=== PATIENT | male | born 2000 | race Caucasian/White ===

== ENCOUNTER 2024-08-09 12:55 | Outpatient (OUT) | payer OTHER, SELFPAY ==
--- NOTE | 2024-08-09 13:36 | RT_ITS ---
The [facility] Test Date: 2024-08-09 Pat Name: NASIMA SARABIA Department: Room: - Gender: Male Display Screen Fabricator: Ruben Candelaria RRT : 2000 Requested By: [id number] Order Number: [id number] Reading MD: Almas Skinner Interpretive Statements Spirometry was completed according to ATS criteria. Findings were considered accurate and reproducible. Both pre- and post-bronchodilator values utilized for spirometry. No prior studies available for comparison. Spirometry (based on pre-bronchodilator values): -FEV1/FVC: Normal @ 77% -FEV1: Normal @ 99% -FVC: Normal @ 105% -NCN80-19%: Normal at 88% -There is no significant bronchodilator response. Flow-volume loop: -Normal shape Impressions: -Technically normal spirometry. Depending on clinical scenario, may consider full PFT (lung volumes and diffusion capacity) or methacholine challenge. Clinical correlation required. Electronically Signed On 08-13-2024 10:03:36 EST by Almas Skinner
[2024-08-09] MEDS: ALBUTEROL SULFATE 2.5 MG/3 ML VIAL NEB IH (13:37)
--- NOTE | 2024-08-09 14:04 | XR_ITS ---
[address] [address] Patient Name: NASIMA SARABIA MRN: [id number] date: 2000 Sex: M Assigned Patient Location: CARD Current Patient Location: CARD Accession/Order Number: [id number] Exam Date: 08/09/2024 14:05 Report Date: 08/09/2024 15:00 At the request of: ABHIJEET MARINO Procedure: XR chest 2V EXAMINATION: XR chest 2V HISTORY: Pneumonia COMPARISON: No relevant comparison available. TECHNIQUE: PA and lateral FINDINGS: LUNGS: No significant pulmonary parenchymal abnormalities. VASCULATURE: No increased pulmonary vasculature. PLEURA: No pneumothorax, effusion, or pleural thickening. CARDIAC: No cardiomegaly or cardiac silhouette abnormality. MEDIASTINUM: No visible mass or adenopathy. BONES: No fracture or visible bone lesion. Dextrocurvature OTHER: Negative. XR/XR chest 2V IMPRESSION: No acute cardiopulmonary process. Electronically authenticated by: BREANNE PURI Date: 08/09/2024 15:00
== END 2024-08-09 12:56 | disposition home or self-care (01) ==
PROVIDERS: PCP Family Medicine; Visit Provider Chiropractor
DX: J18.9 Pneumonia, unspecified organism (principal)
CPT/HCPCS: 71046; 94060

== ENCOUNTER 2024-09-10 17:57 | Emergency (ER) | payer OTHER, SELFPAY ==
[2024-09-10 18:03] VITALS: BP 145/76; PULSE 64; TEMP 37.1; O2SAT 100; BMI 32.8
--- OUTSIDE RECORDS SUMMARY | 2024-09-10 18:03 | XMS_ITS | CCD ---
Author Organization [facility] Care Team Providers Care Electrical Electronics Engineer Name Role Phone DR CHAITANYA BRADFORD Consulting Unavailable DR CHAITANYA BRADFORD Attending Unavailable DR CHAITANYA BRADFORD Admitting Unavailable DR CHAITANYA BRADFORD Primary Care Unavailable Unavailable Primary Care Provider BARB Talbert Referring Unavailable ANA MARÍA STEIN Attending Unavailable ANA MARÍA STEIN Referring Unavailable Problems Active Problems Problem Classification Problem Date Documented Da te Episodic/Chronic Administrative/social admission (2 sources) Encounter for pre-employment examination; Translations: [Encounter for pre-employment examination] Onset: 08-04-2022 Episodic Other upper respiratory infections (1 source) Acute pharyngitis, unspecified; Translations: [ACUTE PHARYNGITIS UNSPECIFIED] Onset: 03-11-2022 Episodic Unclassified (3 sources) CONTACT W/AND (SUSP) EXPOS COVID-19; Translations: [CONTACT W/AND (SUSP) EXPOS COVID-19] Onset: 03-11-2022 Past or Other Problems Problem Classification Problem Date Documented Da te Episodic/Chronic Unclassified (1 source) CONTACT W/AND (SUSP) EXPOS COVID-19; Translations: [CONTACT W/AND (SUSP) EXPOS COVID-19] Onset: 03-08-2022 Results Test Name Value Interpretation Reference Range Facil ity US GALLBLADDERon 05-14-2024 US GALLBLADDER EXAM: Limited Abdome n Ultrasound: REAON FOR EXAM: Nausea and vomiting. Reference Exam: No comparison. TECHNIQUE: Real-time ultrasonographic evaluation of the abdomen performed with color flow Doppler and Doppler spectral analysis. FINDINGS: Liver: The liver shows normal size and echogenicity. There is normal hepatopetal blood flow in the portal vein by Doppler spectral analysis. Biliary tract: The gallbladder shows no evidence of stones or wall thickening and no evidence of pericholecystic fluid. The common bile duct diameter is normal and there is no evidence of intrahepatic or extrahepatic biliary dilatation. Pancreas: What is seen of the pancreas is remarkable for increased echotexture of the pancreas, possibly related to fatty infiltration. Right kidney: Renal parenchymal echotexture normal. Negative for hydronephrosis, retroperitoneal mass, fluid collection or stone. Peritoneal cavity: Negative for ascites. Measurements: CBD: 0.41 cm GB wall: 0.26 cm Pancreas: Echogenic Right kidney: 10.2 cm Liver: 16.7 cm IMPRESSION: 1. Echogenic pancreatic parenchyma can be related to fatty infiltration of the pancreas. 2. No biliary tract pathology identified. 3. No acute intra-abdominal pathology is identified. *This report is generated using voice recognition reporting (Telepath). On occasion Rest[employer] erroneously drops words from the report or replaces the spoken word with similar sounding words. Please call with any questions/concerns regarding this report.* Dictated and transcribed 05/14/24/dpd This report has been electronically signed and approved by the interpreting radiologist. Electronically Signed Eldon Lopez M.D. 2024-05-14 16:55:40 Normal Not Available Measles (Rubeola) Imon 08-05 Measles (Rubeola) Im 1.07 Low >1.09 [facility] Comment on above: Result Comment: Reference Range: <0.91 Not Immune 0.91 - 1.10 Equivocal >1.10 Immune Performed By: #### R UBI, JULES, VZI, SHWETHA #### [facility] [address].[facility] [address] [place] [address] Pipe Insulator: Dwayne Sloan MD Mumps,Immun,Abon 08-05-2022 Mumps,Immun,Ab 0.70 Low >1.09 [facility] Comment on above: Result Comment: Interpretation: Not Immune Reference Range: <0.91 Not Immune 0.91-1.09 Equivocal >1.09 Immune Performed By: #### R UBI, JULES, VZI, SHWETHA #### [facility] [address].[facility] [address] [place] [address] [id number] Pipe Insulator: Dwayne Sloan MD Rubella Ab, IgGon 08-05-2022 Rubella Ab, IgG 260.4 IU/mL Normal [facility] Comment on above: Result Comment: REFERENCE RANGE: <5.0 NON-REACTIVE (non-immune) 5.0 TO 9.9 EQUIVOCAL >=10.0 REACTIVE (immune) Performed By: #### R UBI, JULES, VZI, SHWETHA #### [facility] [address] [place] [address] Pipe Insulator: Dwayne Sloan MD Rubella antibody, IgGon 07-09 Rubella virus IgG Ql (S) 260.4 IU/mL [facility] Comment on above: REFERENCE RANGE: <5.0 NON-REACTIVE (non-immune) 5.0 TO 9.9 EQUIVOCAL >=10.0 REACTIVE (immune) [facility] VZ Immunityon 08-05-2022 VZ Immunity 0.64 Low >1.09 [facility] Comment on above: Result Comment: Interpretation: Not Immune Reference Range: <0.91 Not Immune 0.91-1.09 Equivocal >1.09 Immune Performed By: #### R UBI, JULES, VZI, SHWETHA #### [facility] [address] [place], [place] [id number] Pipe Insulator: Dwayne Sloan MD [facility]on SARS-CoV-2 (COVID-19) RNA ISAIAS+probe Ql (Unsp spec) Not detected Normal NOT DETECTED [facility] Comment on above: Result Comment: This test is not yet approved or cleared by the [place] FDA. When there are no FDA-approved or cleared tests available, and other criteria are met, FDA can make tests available under an emergency access mechanism called an Emergency Use Authorization (EUA). The EUA for this test is supported by the [employer] Supervisor of Health and Human Service's (HHS's) declaration that circumstances exist to justify the emergency use of in vitro diagnostics for the detection and/or diagnosis of the virus that causes COVID-19. This EUA will remain in effect (meaning this test can be used) for the duration of the COVID-19 declaration justifying emergency of IVDs, unless it is terminated or revoked by FDA (after which the test may no longer be used). When diagnostic testing is negative, the possibility of a false negative should be considered in the context of a patient's recent exposures and the presence of clinical signs and symptoms consistent with SARS-CoV-2. Performed By: #### C TB #### [facility] [address] [address] [address] 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 - [facility] Work Phone: Plan of Treatment Date Care Activity Detail Author Start: 03-07-2022 Influenza vaccination Flu vaccine (# 1) [facility] Start: 2017 DTaP/Tdap/Td vaccine (1 - Tdap) DTaP/Tdap/Td vaccine (1 - Tdap) [facility] Start: 04-22-1999 COVID-19 Vaccine (#1) COVID-19 Vacci ne (#1) [employer] End: 08-04-2022 Mumps Antibody, IgG [facility] Work Phone: Comment on above: Once for 1 Occurrenc es starting 08/04/2022 until 08/04/2022 End: 08-04-2022 Rubeola Antibody, IgG [facility] Work Phone: Comment on above: Once for 1 Occurrenc es starting 08/04/2022 until 08/04/2022 End: 08-04-2022 Varicella Zoster Antibody, IgG [facility] Work Phone: Comment on above: Once for 1 Occurrenc es starting 08/04/2022 until 08/04/2022 Payers Date Payer Category Payer Private Health Insurance [id number] 2022 Unknown [id number] 2000 Unknown [id number] 2000 Unknown [id number] 1998 Unknown [id number] [id number] 1998 Unknown [id number] 1959 Unknown [id number] Social History Date Type Detail Facility Tobacco smoking stat [facility] Tobacco smoking consumption unknown [facility] [employer] Phone: Start: 2000 Sex Assigned At Not on file [facility] [employer] Phone: Summary Purpose Family History No Family History Records FoundNo Family History Records FoundNo Family History Records Found Advance Directives No Advanced Directives Records FoundNo Advanced Directives Records FoundNo Advanced Directives Records Found Additional Source Comments (unrecognized sect ion and content) No Status Records FoundNo Status Records FoundNo Status Records Found INFORMATION SOURCE (unrecogn ized section and content) DATE CREATED AUTHOR 03/12/2022 [facility] DATE CREATED AUTHOR AUTHOR'S ORGANIZ ATION 08/05/2022 [facility] DATE CREATED AUTHOR AUTHOR'S ORGANIZ ATION 05/20/2024 [facility] EPIC FOR RECORDS PERTAINING TO PATIENTS WHO ARE OR HAVE BEEN ENROLLED IN A CHEMICAL DEPENDENCY/SUBSTANCEABUSE PROGRAM, SOME INFORMATION MAY BE OMITTED. This clinical summary was aggregated from multiple sources. Caution should be exercised in using it in the provision of clinical care. This summary normalizes information from multiple sources, and as a consequence, information in this document may materially change the coding, format and clinical context of patient data. In addition, data may be omitted in some cases. CLINICAL DECISIONS SHOULD BE BASED ON THE PRIMARY CLINICAL RECORDS. [facility]. provides no warranty or guarantee of the accuracy or completeness of information in this document.
--- NOTE | 2024-09-10 18:09 | XR_ITS ---
The [address] [address] Patient Name: NASIMA SARABIA MRN: [id number] date: 2000 Sex: M Assigned Patient Location: ER Current Patient Location: ED.MAIN Accession/Order Number: [id number] Exam Date: 09/10/2024 18:15 Report Date: 09/10/2024 18:49 At the request of: VINCENT FOSTER Procedure: XR foot RT min 3V Exam: Radiographs: XR foot RT min 3V Reason for exam: twisted Comparison: None XR/XR foot RT min 3V IMPRESSION: Acute mildly angulated distal right fifth metatarsal fracture. Remainder of the right foot radiographs is unremarkable. Electronically authenticated by: TREVON WASHINGTON Date: 09/10/2024 18:49
--- NOTE | 2024-09-10 18:09 | ED.LOWEXI1 ---
HPI HPI - Extremity Injury (Lower) General Chief Complaint: Extremity Injury, Lower Stated Complaint: fall Time Seen by Provider: 09/10/24 18:04 Source: patient Mode of arrival: walk-in Limitations: no limitations History of Present Illness HPI Narrative: 23-year-old male presents to the emergency department for pain in his right foot. This morning he twisted it when he went down a single step. He points to the distal lateral dorsum of his foot to indicate area of pain. No pain in the ankle. It hurts more to walk on it. Related Data Previous Rx's ?Medication ?Instructions ?Recorded acetaminophen 300 mg-codeine 30 mg 1 tab PO Q6H PRN pain 5 days #20 09/10/24 tablet tabs Allergies Allergy/AdvReac Type Severity Reaction Status Date / Time No Known Drug Allergies Allergy Verified 09/10/24 18:02 Opioid HPI Opioid Management Most Recent Pain and Opioid Data: Last Pain Scale 6 09/10/24 18:09 09/10/24 Review of Systems ROS Narrative A ten point review of systems is negative except as noted above. PFSH PFSH Social History Little interest or pleasure in doing things: not at all Feeling down, depressed, or hopeless: not at all Exam Narrative Exam Narrative: Nurses note and vital signs reviewed and patient is not hypoxic. General: The patient appears well and in no apparent distress. Patient is resting comfortably on cart. Skin: Warm, dry, no pallor noted. There is no rash noted. Head: Normocephalic, atraumatic Eye: Normal conjunctiva, no drainage Ears, Nose, Mouth, and Throat: oral mucosa is moist. Nares patent. Cardiovascular: Regular Rate and Rhythm Respiratory: Patient is in no distress, no accessory muscle use Back: non-tender GI: Normal bowel sounds, no tenderness to palpation, no masses appreciated. No rebound, guarding, or rigidity noted. Musculoskeletal: The right ankle is nontender. The right foot is examined. There is some bruising and swelling of the distal dorsal lateral aspect of his foot. Skin intact. Neurological: A&O, normal speech Psychiatric: Cooperative Constitutional Vital Signs, click to edit/add: Last Vital Signs Temp 98.7 F 09/10/24 18:03 Pulse 64 09/10/24 18:03 Resp 18 09/10/24 18:03 BP 145/76 H 09/10/24 18:03 Pulse Ox 100 09/10/24 18:03 O2 Del Method Room Air 09/10/24 18:03 Course Vital Signs Vital signs: Vital Signs Temperature 98.7 F 09/10/24 18:03 Pulse Rate 64 09/10/24 18:03 Respiratory Rate 18 09/10/24 18:03 Blood Pressure 145/76 H 09/10/24 18:03 Pulse Oximetry 100 09/10/24 18:03 Oxygen Delivery Method Room Air 09/10/24 18:03 Temperature 98.7 F 09/10/24 18:03 Pulse Rate 64 09/10/24 18:03 Respiratory Rate 18 09/10/24 18:03 Blood Pressure 145/76 H 09/10/24 18:03 Pulse Oximetry 100 09/10/24 18:03 Oxygen Delivery Method Room Air 09/10/24 18:03 MDM - Extremity Injury (Lower) MDM Narrative Medical decision making narrative: Right fifth metatarsal fractures identified. Short leg splint applied by me and he is neurovascularly intact. He is also placed on crutches and referred to Dr. Levi. The importance of follow-up was discussed thoroughly. Treatment diagnosis and follow-up were discussed with the patient and his . Differential Diagnosis Differential diagnosis: Likely other (Foot fracture, foot sprain) Imaging Data Right foot x-ray: My impression: Right fifth metatarsal fracture Discharge Plan Discharge Chief Complaint: Extremity Injury, Lower Clinical Impression: Fracture of fifth metatarsal bone of right foot Patient Disposition: Home, Self-Care Time of Disposition Decision: 18:39 Condition: Good Mode of Transportation: Private Vehicle Prescriptions / Home Meds: New acetaminophen-codeine 300-30 mg tablet 1 tab PO Q6H PRN (Reason: pain) 5 Days Qty: 20 0RF Print Language: Bulgarian Instructions: Foot Fracture in Adults (ED) Referrals: Sony Bustillos MD [Primary Care Provider] - 1 week Chris Levi DPM [Physician] - As soon as possible
--- NOTE | 2024-09-10 18:43 | PC.NURSE ---
crutch training given, pt demonstrates good use
== END 2024-09-10 18:55 | disposition home or self-care (01) ==
PROVIDERS: Emergency Provider Emergency Medicine; PCP Family Medicine
DX: S92.351A Displaced fracture of fifth metatarsal bone, right foot, initial encounter for closed fracture (principal); X50.1XXA Overexertion from prolonged static or awkward postures, initial encounter
CPT/HCPCS: 29515; 73630; 99283

== ENCOUNTER 2024-10-03 14:59 | Outpatient (OUT) | payer OTHER, SELFPAY ==
--- NOTE | 2024-10-03 | XR_ITS ---
The [address] [address] Patient Name: NASIMA SARABIA MRN: [id number] date: 2000 Sex: M Assigned Patient Location: Current Patient Location: Accession/Order Number: [id number] Exam Date: 10/03/2024 15:33 Report Date: 10/03/2024 15:34 At the request of: MODESTA SILVA Procedure: XR foot RT min 3V XR foot RT min 3V 10/03/2024 3:07 PM SIGNS AND SYMPTOMS: ^RIGHT FOOT PAIN PROTOCOL: Frontal, lateral, and oblique radiographs of the right foot COMPARISON: 09/10/2024 FINDINGS: There is redemonstration of an obliquely oriented fracture of the distal shaft of the fifth metatarsal without change in alignment or significant interval healing. There is accompanying mild soft tissue swelling laterally. No additional fractures. The joint spaces are preserved. XR/XR foot RT min 3V IMPRESSION: There is redemonstration of an obliquely oriented fracture of the distal shaft of the fifth metatarsal without change in alignment or significant interval healing. Impression dictated by: Eldon Muir M.D.10/03/2024 3:34 PM Dictation Location: [address] [place] [address] Electronically authenticated by: [id number] Y Date: 10/03/2024 15:34
--- OUTSIDE RECORDS SUMMARY | 2024-10-03 15:23 | XMS_ITS | CCD ---
Author Organization [facility] Care Team Providers Care Sexual Assault Counsellor Name Role Phone DR CHAITANYA BRADFORD Consulting [...] report is generated using voice recognition reporting ([employer]). On occasion [employer] erroneously drops words from the report or replaces the spoken word with similar sounding words. Please call with any questions/concerns regarding this report.* Dictated and transcribed 05/14/24/dpd This report has been electronically signed and approved by the interpreting radiologist. Electronically Signed Eldon Lopez M.D. 2024-05-14 16:55:40 Normal Not Available Measles (Rubeola) Imon 08-05 Measles (Rubeola) Im 1.07 Low >1.09 [facility] Comment on above: Result Comment: Reference Range: <0.91 Not Immune 0.91 - 1.10 Equivocal >1.10 Immune Performed By: #### R UBI, JULES, VZI, SHWETHA #### [facility] [employer] [address] [place] [address] Spring Coverer: Dwayne Sloan MD Mumps,Immun,Abon 08-05-2022 Mumps,Immun,Ab 0.70 Low >1.09 [facility] Comment on above: Result Comment: Interpretation: Not Immune Reference Range: <0.91 Not Immune 0.91-1.09 Equivocal >1.09 Immune Performed By: #### R UBI, JULES, VZI, SHWETHA #### [facility] [employer] [address] [place] [address] [id number] Spring Coverer: Dwayne Sloan MD Rubella Ab, IgGon 08-05-2022 Rubella Ab, IgG 260.4 IU/mL Normal [facility] Comment on above: Result Comment: REFERENCE RANGE: <5.0 NON-REACTIVE (non-immune) 5.0 TO 9.9 EQUIVOCAL >=10.0 REACTIVE (immune) Performed By: #### R UBI, JULES, VZI, SHWETHA #### [employer] [address] [place] [address] Spring Coverer: Dwayne Sloan MD Rubella antibody, IgGon 07-09 Rubella virus IgG Ql (S) 260.4 IU/mL [facility] Comment on above: REFERENCE RANGE: <5.0 NON-REACTIVE (non-immune) 5.0 TO 9.9 EQUIVOCAL >=10.0 REACTIVE (immune) [facility] VZ Immunityon 08-05-2022 VZ Immunity 0.64 Low >1.09 [facility] Comment on above: Result Comment: Interpretation: Not Immune Reference Range: <0.91 Not Immune 0.91-1.09 Equivocal >1.09 Immune Performed By: #### R UBI, JULES, VZI, SHWETHA #### [employer] [address] [place], [place] [id number] Spring Coverer: Dwayne Sloan MD [facility]-19 PCR [facility]on SARS-CoV-2 (COVID-19) RNA ISAIAS+probe Ql (Unsp spec) Not detected Normal NOT DETECTED [facility] Comment on above: Result Comment: This test is not yet approved or cleared by the [place] FDA. When there are no FDA-approved or cleared tests available, and other criteria are met, FDA can make tests available under an emergency access mechanism called an Emergency Use Authorization (EUA). The EUA for this test is supported by the Legal Instruments Examiner of Health and Human Service's (HHS's) declaration [...] SARS-CoV-2. Performed By: #### C TB #### [facility] [address] [address] [address] 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 - [facility] Work Phone: Plan of Treatment Date Care Activity Detail Author Start: 03-07-2022 Influenza vaccination Flu vaccine (# 1) [employer] Start: 2017 DTaP/Tdap/Td vaccine (1 - Tdap) DTaP/Tdap/Td vaccine (1 - Tdap) [employer] Start: 04-22-1999 COVID-19 Vaccine (#1) COVID-19 Vacci ne (#1) [facility] End: 08-04-2022 Mumps Antibody, IgG [facility] Work Phone: Comment on above: Once for 1 Occurrenc es starting 08/04/2022 until 08/04/2022 End: 08-04-2022 Rubeola Antibody, IgG [employer] Work Phone: Comment on above: Once for 1 Occurrenc es starting 08/04/2022 until 08/04/2022 End: 08-04-2022 Varicella Zoster Antibody, IgG [employer] Work Phone: Comment on above: Once for 1 Occurrenc es starting 08/04/2022 until 08/04/2022 Payers Date Payer Category Payer Private Health Insurance [id number] 2022 Unknown [id number] 1998 Unknown [id number] 1998 Unknown [id number] 1998 Unknown [id number] [id number] 1998 Unknown [id number] [id number] 1959 Unknown [id number] Social History Date Type Detail Facility Tobacco smoking stat [facility] Tobacco smoking consumption unknown [employer] Phone: Start: 2000 Sex Assigned At Not on file [employer] Phone: Summary Purpose Family History No Family History Records FoundNo Family History Records FoundNo Family History Records Found Advance Directives No Advanced Directives Records FoundNo Advanced Directives Records FoundNo Advanced Directives Records Found Additional Source Comments (unrecognized sect ion and content) No Status Records FoundNo Status Records FoundNo Status Records Found INFORMATION SOURCE (unrecogn ized section and content) DATE CREATED AUTHOR 03/12/2022 [facility] DATE CREATED AUTHOR AUTHOR'S ORGANIZ ATION 08/05/2022 [facility] DATE CREATED AUTHOR AUTHOR'S ORGANIZ ATION 05/20/2024 [facility] Specialists EPIC FOR RECORDS PERTAINING TO PATIENTS [...] BE BASED ON THE PRIMARY CLINICAL RECORDS. [facility] [employer] [facility]. provides no warranty or guarantee of the accuracy or completeness of information in this document.
== END 2024-10-03 15:00 | disposition home or self-care (01) ==
LOC: EC 14:59
PROVIDERS: PCP Family Medicine; Visit Provider Physician Assistant
DX: M79.671 Pain in right foot (principal); S92.351D Displaced fracture of fifth metatarsal bone, right foot, subsequent encounter for fracture with routine healing
CPT/HCPCS: 73630

== ENCOUNTER 2024-10-14 07:42 | Outpatient (OUT) | payer OTHER, SELFPAY ==
--- NOTE | 2024-10-14 | XR_ITS ---
The [address] [address] Patient Name: NASIMA SARABIA MRN: [id number] date: 2000 Sex: M Assigned Patient Location: Current Patient Location: Accession/Order Number: [id number] Exam Date: 10/14/2024 11:01 Report Date: 10/14/2024 11:03 At the request of: SONAL CLAUDIO MD Procedure: XR foot RT min 3V RIGHT FOOT - 3 views CLINICAL DATA: Right foot pain. Follow-up fifth metatarsal fracture. COMPARISON: 10/03/2024 AP, lateral and oblique views were obtained. There is redemonstration of an oblique, mildly displaced fracture at the distal shaft of the fifth metatarsal extending to the neck. There is no change in alignment. No significant developing callus formation is seen. There is no new fracture or dislocation. There are no significant soft tissue abnormalities. XR/XR foot RT min 3V IMPRESSION: STABLE FIFTH METATARSAL FRACTURE Impression dictated by: Jeanne Singh M.D.10/14/2024 11:03 AM Dictation Location: [place] [address] Electronically authenticated by: [id number] Date: 10/14/2024 11:03
== END 2024-10-14 07:43 | disposition home or self-care (01) ==
LOC: EC 07:42
PROVIDERS: PCP Family Medicine; Visit Provider Orthopaedic Surgery
DX: M79.671 Pain in right foot (principal); S92.351D Displaced fracture of fifth metatarsal bone, right foot, subsequent encounter for fracture with routine healing
CPT/HCPCS: 73630